=== PATIENT | female | born 1985 | race Caucasian/White ===

== ENCOUNTER 2020-03-29 16:59 | Outpatient (CLI) ==
[2020-03-29 19:11] VITALS: BP 127/77; PULSE 98; RESP 16; TEMP 97.5
--- NOTE | 2020-03-29 19:15 | US ---
EXAMINATION TYPE: US OB >= 14 wk fetus DATE OF EXAM: 03/29/2020 COMPARISON: None CLINICAL HISTORY: Post DatesPost Dates. JONAH and EFW. . TECHNIQUE: Transabdominal (TA) GESTATIONAL AGE / DATING Physician Established: (40 weeks/3 days) EDC: 03/26/2020 Dates by LMP: Dates by First Scan: This is first scan Dates by Current Scan: (37 weeks/1 day) EDC: 04/18/2020 SURVEY IUP: Single PLACENTA: Posterior. Appears to be heterogeneous. PREVIA: No Previa seen JONAH: 15.24 cm Normal CERVICAL LENGTH (transabdominal: norm > 3.0cm): 3.47 cm BIOMETRY PRESENTATION: Vertex LIE: Longitudinal BPD: 9.37 cm 38 weeks / 1 day HC: 33.60 cm 38 weeks / 3 days AC: 33.59 cm 37 weeks / 3 days FL: 7.11 cm 36 weeks / 3 days ESTIMATED WEIGHT IN GRAMS: 3206 grams ESTIMATED WEIGHT IN LBS/OZ: 7 lbs. 1 oz. WEIGHT PERCENTAGE BASED ON ESTABLISHED DATES: 14.9% HC/AC: 1.00 Normal FL/AC: 21.16 Normal HEART RATE: 135 bpm RHYTHM: Normal *Slightly limited abdominal measurements. IMPRESSION: 1. Live intrauterine , with heart rate 135 bpm. 2. Estimated weight 7 lbs. 1 oz. 3. JONAH 15.24, normal.
--- NOTE | 2020-04-10 08:39 | P.MSEPDOC ---
Presenting Problems - Arrival Data Date of Arrival on Unit: 03/29/20 Time of Arrival on Unit: 16:59 Mode of Transport: Portable - Complaint OB-Reason for Admission/Chief Complaint: Rule Out SROM Comment: Clear fluid @ 1530, small gush, no continued leaking Medical History - Information : 1 Para: 0 Term: 0 : 0 Abortions: Spontaneous or Elective: 0 Number of Living Children: 0 - Gestational Age Gestational Age by LIAM (wks/days): 40 Weeks and 3 Days Review of Systems - Review of Systems Constitutional: No problems Breast: No problems ENT: No problems Cardiovascular: No problems Respiratory: No problems Gastrointestinal: No problems Genitourinary: No problems Musculoskeletal: No problems Neurological: No problems Skin: No problems Vital Signs - Temperature Temperature: 97.5 F Temperature Source: Temporal Artery Scan - Pulse Right Sitting Brachial Pulse Rate: 98 Pulse Assessment Method: Automatic Cuff - Respirations Respiratory Rate: 16 Oxygen Delivery Method: Room Air O2 Sat by Pulse Oximetry: 97 - Blood Pressure Right Arm Sitting Blood Pressure: 127/77 Blood Pressure Mean: 93 Blood Pressure Source: Automatic Cuff Medical Screen Scoring (Pre) - Cervical Exam Dilation: 1-3 cm = 1 Membranes: Intact - Uterine Contractions Frequency: N/A Duration: N/A Intensity: N/A - Maternal Vital Signs Maternal Temperature: N/A Maternal Blood Pressure: N/A Maternal Respirations: N/A - Maternal Trauma Maternal Trauma: N/A - Assessment - Baby A Baseline FHR: 130 Heart Rate - NICHD Category: Category I (Normal) = 0 NST: Reactive Position: N/A Station: N/A - Total Score - Baby A Total Score - Baby A: 1 - Total Score - Baby B Total Score - Baby B: 1 - Total Score - Baby C Total Score - Baby C: 1 - Level of Risk - Baby A Level of Risk - Baby A: Low (0-5) - Level of Risk - Baby B Level of Risk - Baby B: Low (0-5) - Level of Risk - Baby C Level of Risk - Baby C: Low (0-5) Physician Notification (Pre) - Physician Notified Physician Notified Date: 03/29/20 Physician Notified Time: 17:40 New Order Received: Yes - Notification Comment Comment: Imelda godfrey\Dr. Henson, advsd , 40 , possible SROM, negative amnisure, /-2, no contractions, reactive NST. Appt tomorrow for NST, Friday for appt c\RN. Appt with Dr. Anderson 04/06/20. Orders rec'd for US for JONAH and EFW r/t post-dates. Medical Screen Scoring (Post) - Uterine Contractions Frequency: N/A Duration: N/A Intensity: N/A - Maternal Vital Signs Maternal Temperature: N/A Maternal Blood Pressure: N/A Signs of Preeclampsia: N/A Maternal Respirations: N/A - Maternal Trauma Maternal Trauma: N/A - Assessment - Baby A Heart Rate: 130 Heart Rate - NICHD Category: Category I (Normal) = 0 NST: Reactive Position: N/A Station: N/A - Total Score Total Score - Baby A: 0 Total Score - Baby B: 0 Total Score - Baby C: 0 - Post Treatment Level of Risk Post Treatment Level of Risk - Baby A: Low (0-5) Post Treatment Level of Risk - Baby B: Low (0-5) Post Treatment Level of Risk - Baby C: Low (0-5) Physician Notification (Post) - Physician Notified Physician Notified Date: 03/29/20 - Notification Comment Comment: JONAH 15.24cm; EFW 7lb 1oz/3206g. Pt to follow up for scheduled NST tomorrow. Disposition - Disposition OB Disposition: Discharge to home, Written follow up instructions reviewed Discharge Date: 03/29/20 Discharge Time: 18:50 I agree with the RN Medical Screening Exam: Yes Risk & Benefit of care provided described in d/c instruction: Yes Diagnosis: RELATED CONDITIONS, UNSPECIFIED, THIRD TRIMESTER
== END 2020-03-29 18:50 | disposition home or self-care (01) ==
LOC: FBPOP 16:59
PROVIDERS: ATTEND Obstetrics & Gynecology
DX: O26.90 Pregnancy related conditions, unspecified, unspecified trimester (principal); Z3A.40 40 weeks gestation of pregnancy
CPT/HCPCS: 76805

== ENCOUNTER 2020-03-30 19:42 | Inpatient (IN) | payer BC ==
[2020-03-30] MEDS ORDERED: TERBUTALINE 1 MG/ML VIAL SQ PRN (20:26)
[2020-03-30] MEDS ORDERED: OXYTOCIN 10 UNIT/ML 1 ML VIAL IM PRN (20:26)
[2020-03-30] MEDS ORDERED: METHYLERGONOVINE 0.2 MG/ML 1 ML AMP IM PRN (20:26)
[2020-03-30] MEDS ORDERED: LIDOCAINE 0.5% (PF) 5 MG/ML (50 ML SDV) SQ PRN (20:26)
[2020-03-30] MEDS ORDERED: CARBOPROST TROMETHAMINE 250 MCG/ML 1 ML AMP IM PRN (20:26)
[2020-03-30] MEDS ORDERED: AMPICILLIN 2,000 MG in SODIUM CHLORIDE 0.9% 100 ML IVPB STA (20:26)
[2020-03-30] MEDS ORDERED: OXYTOCIN 30 UNITS/500 ML NS 30 UNIT in SALINE 1 500ML.BAG IV SCH (20:30)
[2020-03-30] MEDS: LACTATED RINGERS 1,000 ML IV SCH (20:50)
[2020-03-30 21:04] LABS: Basophils % (A) 0 %; Eosinophils # (A) 0.1 k/uL (0-0.7); Eosinophils % (A) 1 %; HCT 34.5 % (34.0-46.0); HGB 11.3 gm/dL (11.4-16.0); Lymphocytes # (A) 2.6 k/uL (1.0-4.8); Lymphocytes % (A) 26 %; MCH 30.5 pg (25.0-35.0); MCHC 32.8 g/dL (31.0-37.0); MCV 92.9 fL (80.0-100.0); Mean Platelet Volume 7.2; Monocytes # (A) 0.4 k/uL (0-1.0); Monocytes % (A) 4 %; Neutrophils # (A) 6.9 k/uL (1.3-7.7); Neutrophils % (A) 68 %; Platelet Count 351 k/uL (150-450); Poikilocytosis Slight; RBC 3.72 m/uL (3.80-5.40); RDW 12.9 % (11.5-15.5); WBC 10.1 k/uL (3.8-10.6)
[2020-03-31] MEDS: AMPICILLIN 1,000 MG in SODIUM CHLORIDE 0.9% 50 ML IVPB SCH ×2 (00:22→04:28)
[2020-03-31] MEDS ORDERED: ROPIVACAINE 5MG/ML 20ML VIAL ONE (03:00)
[2020-03-31] MEDS ORDERED: SODIUM CHLORIDE 0.9% 100 ML BAG ONE (03:00)
[2020-03-31] MEDS ORDERED: fentaNYL (PF) 50 MCG/ML 5 ML AMP ONE (03:00)
[2020-03-31] MEDS: LACTATED RINGERS 1,000 ML IV SCH (03:30)
--- NOTE | 2020-03-31 06:12 | P.HPOB ---
History of Present Illness H&P Date: 03/31/20 Chief Complaint: Contractions This is a 34-year-old female 1 para 0 with an estimated date of confinement of 03/26/2020, estimated gestational age of 40-4/7 weeks, who presented to labor and delivery yesterday evening after contractions started at approximately 4 PM. She had been seen in triage the day before. She stated she felt a large gush of fluid at approximately 3 PM on 03/29/2020. She was checked in triage and did have 2 separate amnisure tests, both of which were negative. She did go to the office yesterday for a scheduled fluid level and NST. Both were normal. She has continued to feel leaking since the seventh. care has been with Dr. Anderson and has been uncomplicated. labs: GC/chlamydia-negative Random glucose-62 Hemoglobin-10.5 Blood type-A+ Antibody screen-negative Hepatitis B surface antigen-negative on reactive Rubella-immune Toxoplasma-negative HIV-nonreactive RPR-nonreactive Group B streptococcus-negative Obstetrical history: . Social history: She is single. She works full-time as a social human services assistants. Review of Systems Constitutional: Denies chills, Denies fever Eyes: denies blurred vision, denies pain Ears, nose, mouth and throat: Denies headache, Denies sore throat Cardiovascular: Denies chest pain, Denies shortness of breath Respiratory: Denies cough Gastrointestinal: Reports abdominal pain (Contractions) Genitourinary: Reports pelvic pain, Reports Musculoskeletal: Reports low back pain Integumentary: Denies pruritus, Denies rash Neurological: Denies numbness, Denies weakness Psychiatric: Denies anxiety, Denies depression Past Medical History Past Medical History: No Reported History History of Any Multi-Drug Resistant Organisms: None Reported Past Surgical History: No Surgical Hx Reported Past Anesthesia/Blood Transfusion Reactions: No Reported Reaction Past Psychological History: No Psychological Hx Reported Smoking Status: Never smoker Past Alcohol Use History: None Reported Past Drug Use History: None Reported - Past Family History Mother Family Medical History: No Reported History Medications and Allergies Home Medications Medication Instructions Recorded Confirmed Type Pnv No.95/Ferrous Fum/Folic AC 1 PO DAILY 03/30/20 History [ Multivitamin Tablet] Allergies Allergy/AdvReac Type Severity Reaction Status Date / Time No Known Allergies Allergy Verified 03/29/20 17:19 Exam Osteopathic Statement: *. No significant issues noted on an osteopathic structural exam other than those noted in the History and Physical/Consult. Vital Signs Temp Pulse Resp BP Pulse Ox 03/30/20 20:53 97.3 F L 76 16 132/82 99 03/30/20 20:01 96.9 F L 96 16 136/90 99 Intake and Output 03/30/20 03/30/20 03/31/20 14:59 22:59 06:59 Other: # Voids 1 Weight 77.564 kg HEENT: Within normal limits Heart: Regular rate and rhythm Lungs: Clear to auscultation bilaterally Abdomen: Cervix: On admission is 1-1/2 cm/50%/-2 station. Amnisure is positive. Some clear fluid is noted. heart tones: Reactive, category 1 Contractions: Every 4-5 minutes Extremities: Negative Homans. Results Result Diagrams: 03/30/20 20:26 Abnormal Lab Results - Last 24 Hours (Table) 03/30/20 Range/Units 20:26 RBC 3.72 L (3.80-5.40) m/uL Hgb 11.3 L (11.4-16.0) gm/dL Assessment and Plan (1) 40 weeks gestation of Current Visit: Yes Status: Acute Code(s): Z3A.40 - 40 WEEKS GESTATION OF SNOMED Code(s): 57422584 (2) Prolonged rupture of membranes Current Visit: Yes Status: Acute Code(s): O42.90 - LATIA ROM, 7TH0 BETW RUPT & ONST LABR, UNSP WEEKS OF GEST SNOMED Code(s): 24798724 Plan: Antibiotic prophylaxis for prolonged rupture of membranes. Admission. Oxytocin augmentation of labor. Epidural anesthesia when desired.
[2020-03-31] MEDS ORDERED: IBUPROFEN 600 MG TAB PO PRN (07:52)
[2020-03-31] MEDS ORDERED: BENZOCAINE/MENTHOL SPRAY 1 GM/SPRAY AEROSOL TOPICAL PRN (07:52)
[2020-03-31] MEDS ORDERED: LANOLIN CREAM 5 GM TUBE TOPICAL PRN (07:52)
[2020-03-31] MEDS ORDERED: diphenhydrAMINE 25 MG CAP PO PRN (07:52)
[2020-03-31] MEDS ORDERED: HYDROCORTISONE 2.5% RECTAL CREAM 30 GM TUBE RECTAL PRN (07:52)
[2020-03-31] MEDS ORDERED: ZOLPIDEM 5 MG TAB PO PRN (07:52)
[2020-03-31] MEDS ORDERED: diphenhydrAMINE 50 MG/ML 1 ML VIAL IVP PRN ×2 (07:52)
[2020-03-31] MEDS ORDERED: SIMETHICONE 80 MG CHEWABLE PO PRN (07:52)
[2020-03-31] MEDS ORDERED: diphenhydrAMINE 50 MG CAP PO PRN (07:52)
[2020-03-31] MEDS ORDERED: OXYTOCIN 20 UNITS/1000 ML NS 1,000 ML IV SCH (07:52)
--- NOTE | 2020-03-31 08:21 | P.PROBDLV ---
Vaginal Delivery Note - . Vaginal Delivery Note: The patient progressed to complete dilation after oxytocin augmentation of labor and antibiotic prophylaxis secondary to prolonged rupture of membranes. She did receive epidural anesthesia. Once reaching complete, she began pushing. Infant's head came to a crown. With one further push, the 's head delivered across the perineum followed by the anterior shoulder and the remainder of the body. Infant was placed on mother's abdomen and nose and mouth were bulb suctioned. Cord was clamped and cut and was taken to warmer for evaluation. A viable male is noted with scores of 9 at 1 minute and 9 at 5 minutes and infant weight was 7 lbs. 8 oz. Placenta delivered shortly thereafter, intact, with a three-vessel cord. Placenta will be sent to pathology due to prolonged rupture of membranes. Uterus contracted well after oxytocin was given and uterine massage was carried out. Inspection of the perineum revealed a small second-degree perineal laceration. This area was anesthetized with 1% lidocaine and then sutured with 3-0 Vicryl suture in the usual multilayer fashion. Estimated blood loss is approximately 150 mL's. Both mother and are in stable condition.
[2020-03-31] MEDS: SENNOSIDES-DOCUSATE SODIUM 1 EACH TAB PO SCH (09:13)
[2020-04-01] MEDS: SENNOSIDES-DOCUSATE SODIUM 1 EACH TAB PO SCH ×3 (06:26→21:03)
--- NOTE | 2020-04-01 07:18 | P.PNOBGVD ---
Subjective - Subjective Patient reports: Reports appetite normal, Reports voiding normally, Reports pain well controlled, Reports ambulating normally : doing well Objective - Latest Vital Signs Latest vital signs: Vital Signs Temp Pulse Pulse Resp BP Pulse Ox 04/01/20 00:00 97.6 F 79 16 115/76 99 03/31/20 20:00 97.6 F 67 16 127/63 99 03/31/20 16:00 98.4 F 82 16 110/76 03/31/20 12:00 98.1 F 90 16 122/75 99 03/31/20 09:40 86 16 121/68 03/31/20 09:10 81 16 100/55 03/31/20 08:40 80 16 100/59 03/31/20 08:25 83 16 124/79 03/31/20 08:10 91 16 107/61 03/31/20 07:55 96 16 113/64 03/31/20 07:40 98.3 F 92 16 125/69 Intake and Output 03/31/20 04/01/20 04/01/20 22:59 06:59 14:59 Other: # Voids 1 1 - Exam Lungs: bilateral: normal Chest: Normal S1, Normal S2 Extremities: Present: normal Abdomen: Present: normal appearance, soft Uterus: Present: normal, firm Assessment and Plan Assessment: Post day #1. Patient is resting without complaints. Vital signs are stable and she is afebrile. Uterus is firm nontender she's having normal lochia. My impression this is a normal course. Due to the prolonged rupture, baby will stay another day and therefore we plan on discharging mother tomorrow as well. (1) Normal labor and delivery Current Visit: Yes Status: Acute Code(s): O80 - ENCOUNTER FOR FULL-TERM UNCOMPLICATED DELIVERY SNOMED Code(s): 73939343
[2020-04-01 08:02] LABS: Basophils % (A) 0 %; Eosinophils # (A) 0.1 k/uL (0-0.7); Eosinophils % (A) 1 %; HCT 29.9 % (34.0-46.0); Lymphocytes # (A) 2.1 k/uL (1.0-4.8); Lymphocytes % (A) 20 %; MCH 29.2 pg (25.0-35.0); MCHC 31.9 g/dL (31.0-37.0); MCV 91.5 fL (80.0-100.0); Mean Platelet Volume 7.2; Monocytes # (A) 0.4 k/uL (0-1.0); Monocytes % (A) 4 %; Neutrophils # (A) 7.6 k/uL (1.3-7.7); Neutrophils % (A) 75 %; Platelet Count 319 k/uL (150-450); RBC 3.27 m/uL (3.80-5.40); RDW 13.4 % (11.5-15.5); WBC 10.2 k/uL (3.8-10.6)
[2020-04-01 08:05] LABS: HGB 9.5 gm/dL (11.4-16.0)
[2020-04-01] MEDS: ACETAMINOPHEN TAB 325 MG TAB PO PRN ×3 (08:53→21:03)
[2020-04-01] MEDS: PRENATAL VIT-IRON-FOLIC ACID 1 EACH CAP PO SCH (14:15)
[2020-04-02] MEDS: ACETAMINOPHEN TAB 325 MG TAB PO PRN ×2 (00:47→09:05)
--- NOTE | 2020-04-02 07:23 | P.PNOBGVD ---
Subjective - Subjective Patient reports: Reports appetite normal, Reports voiding normally, Reports pain well controlled, Reports ambulating normally : doing well Objective - Latest Vital Signs Latest vital signs: Vital Signs Temp Pulse Resp BP Pulse Ox 04/02/20 00:00 97.4 F L 63 14 111/61 98 04/01/20 16:00 97.9 F 84 15 129/63 04/01/20 08:00 97.9 F 80 15 122/78 Intake and Output 04/01/20 04/02/20 04/02/20 22:59 06:59 14:59 Other: # Voids 2 2 - Exam Lungs: bilateral: normal Chest: Normal S1, Normal S2 Extremities: Present: normal Abdomen: Present: normal appearance, soft Uterus: Present: normal, firm - Labs Labs: Abnormal Lab Results - Last 24 Hours (Table) 04/01/20 Range/Units 06:15 RBC 3.27 L (3.80-5.40) m/uL Hgb 9.5 L D (11.4-16.0) gm/dL Hct 29.9 L (34.0-46.0) % Assessment and Plan Assessment: day #2. Patient is resting without new complaints. Vital signs are stable and she is afebrile. Uterus is firm nontender she's having normal lochia. My impression is a normal course. Plan is to continue routine care discharge home later today. (1) Normal labor and delivery Current Visit: Yes Status: Acute Code(s): O80 - ENCOUNTER FOR FULL-TERM UNCOMPLICATED DELIVERY SNOMED Code(s): 79075440
--- NOTE | 2020-04-02 07:28 | P.DS ---
Providers Date of admission: 03/30/20 20:13 Expected date of discharge: 04/02/20 Attending physician: Joanna Anderson Primary care physician: Stated None - Discharge Diagnosis(es) (1) Normal labor and delivery Current Visit: Yes Status: Acute Hospital Course: Please see dictated H&P for intimate details of this patient's admission. Brief summary this pleasant 34-year-old 1 para 0 female 40-5/7 weeks' gestation who is admitted to labor and delivery with suspected prolonged rupture membranes. Patient goes on to have a vaginal delivery viable male . Please see dictated delivery note. day #2 patient's felt be stable for discharge home follow up with Dr. Anderson 6 weeks. Procedures: Normal spontaneous vaginal delivery Patient Condition at Discharge: Good Plan - Discharge Summary New Discharge Prescriptions: No Action Pnv No.95/Ferrous Fum/Folic AC [ Multivitamin Tablet] 1 PO DAILY Discharge Medication List Pnv No.95/Ferrous Fum/Folic AC [ Multivitamin Tablet] 1 PO DAILY 03/30/20 [History] Follow up Appointment(s)/Referral(s): Joanna Anderson DO [Doctor of Osteopathic Medicine] - 05/12/20 11:15 am Patient Instructions/Handouts: Vaginal Delivery (DC) Activity/Diet/Wound Care/Special Instructions: No intercourse or anything per vagina for 6 weeks. Please call if any fever, chills, excessive vaginal bleeding, and/or abdominal pain. Discharge Disposition: HOME SELF-CARE
[2020-04-02 07:54] VITALS: BP 121/72; PULSE 74; RESP 15; TEMP 98
[2020-04-02] MEDS: PRENATAL VIT-IRON-FOLIC ACID 1 EACH CAP PO SCH (09:36)
[2020-04-02] MEDS: SENNOSIDES-DOCUSATE SODIUM 1 EACH TAB PO SCH (09:36)
== END 2020-04-02 11:47 | disposition home or self-care (01) | DRG 807 ==
LOC: FBPOP 19:42 → 4FBP 20:13
PROVIDERS: ADMIT Obstetrics & Gynecology; ATTEND Obstetrics & Gynecology
PROC: 0KQM0ZZ Repair Perineum Muscle, Open Approach (ICD-10-PCS; principal; 2020-03-31)
PROC: 3E0R3BZ Introduction of Anesthetic Agent into Spinal Canal, Percutaneous Approach (ICD-10-PCS; principal; 2020-03-31)
PROC: 00HU33Z Insertion of Infusion Device into Spinal Canal, Percutaneous Approach (ICD-10-PCS; principal; 2020-03-31)
PROC: 10E0XZZ Delivery of Products of Conception, External Approach (ICD-10-PCS; principal; 2020-03-31)
DX: O42.92 Full-term premature rupture of membranes, unspecified as to length of time between rupture and onset of labor (principal); O70.1 Second degree perineal laceration during delivery; Z37.0 Single live birth; Z3A.40 40 weeks gestation of pregnancy
CPT/HCPCS: 59025; 84112; 85025; 86850; 86900; 86901; 99213

== ENCOUNTER → 2023-05-14 | Outpatient (CLI) | payer MEDICAID | END | disposition home or self-care (01) | LOC: LABWHC1 09:44 | PROVIDERS: ATTEND Obstetrics & Gynecology | DX: Z00.00 Encounter for general adult medical examination without abnormal findings (principal); O20.0 Threatened abortion; Z3A.00 Weeks of gestation of pregnancy not specified | CPT/HCPCS: 36415; 84702 ==

== ENCOUNTER → 2023-05-16 | Outpatient (CLI) | payer MEDICAID | END | disposition home or self-care (01) | LOC: LABWHC1 07:18 | PROVIDERS: ATTEND Obstetrics & Gynecology | DX: O20.0 Threatened abortion (principal); Z3A.00 Weeks of gestation of pregnancy not specified | CPT/HCPCS: 36415; 84702 ==

== ENCOUNTER → 2023-05-26 | Outpatient (CLI) | payer MEDICAID | END | disposition home or self-care (01) | LOC: LABWHC1 12:40 | PROVIDERS: ATTEND Obstetrics & Gynecology | DX: O03.9 Complete or unspecified spontaneous abortion without complication (principal); Z3A.00 Weeks of gestation of pregnancy not specified | CPT/HCPCS: 36415; 84702 ==

== ENCOUNTER → 2023-06-13 | Outpatient (CLI) | payer MEDICAID | END | disposition home or self-care (01) | LOC: LABWHC1 09:25 | PROVIDERS: ATTEND Obstetrics & Gynecology | DX: O02.0 Blighted ovum and nonhydatidiform mole (principal); Z3A.00 Weeks of gestation of pregnancy not specified | CPT/HCPCS: 36415; 84702 ==

== ENCOUNTER → 2024-06-22 | Outpatient (CLI) | payer MEDICAID | END | disposition home or self-care (01) | LOC: LABWHC1 09:15 | PROVIDERS: ATTEND Obstetrics & Gynecology | DX: Z36.9 Encounter for antenatal screening, unspecified (principal) | CPT/HCPCS: 36415; 82950 ==

== ENCOUNTER → 2024-07-12 | Outpatient (CLI) | payer MEDICAID ==
--- NOTE | 2024-07-12 10:33 | USB ---
Reason for Exam: Clinical finding. Risk Values: Huma 5 year model risk: 0.3%. NCI Lifetime model risk: 6.8%. Technique: Method: Targeted. Findings: The upper section of the breast of the right breast, the axilla of the right breast and the retroareolar of the right breast were scanned. Targeted ultrasound right breast 11:00 to 1:00 including scanning of the subareolar region and axilla. Very dense tissue is present. Some duct ectasia. Focal duct ectasia versus cyst at the 12:00 position 1 cm from the nipple measuring 1.3 x 0.6 x 0.7 cm. Otherwise, no solid or cystic lesion or axillary lymphadenopathy.. Overall Assessment: Benign, BI-RAD 2 Management: Screening Mammogram of both breasts at age 40. Unless there is an indication to start sooner. Otherwise, clinical management of patient's left breast pain and palpable area. If there is any enlarging or suspicious developing palpable abnormality, the patient can be rescanned. A clinical breast exam by your physician is recommended on an annual basis and results should be correlated with mammographic findings. This exam should not preclude additional follow-up of suspicious palpable abnormalities. Results were given to the patient verbally at the time of exam. [facility], , 07/12/2024 10:31 AM. Electronically signed and approved by: Chet Kunz M.D. Radiologist
== END | disposition home or self-care (01) ==
LOC: RADUSWWP 10:04
PROVIDERS: ATTEND Obstetrics & Gynecology
DX: N64.4 Mastodynia (principal)

== ENCOUNTER 2024-09-18 17:12 | Inpatient (IN) | payer MEDICAID ==
[2024-09-18] MEDS ORDERED: TRANEXAMIC 1,000 MG/100ML-NACL 1,000 MG in EMPTY BAG 1 BAG IV PRN (20:21)
[2024-09-18] MEDS ORDERED: OXYTOCIN 10 UNIT/ML 1 ML VIAL IM PRN (20:21)
[2024-09-18] MEDS ORDERED: miSOPROStoL 200 MCG TAB PO PRN (20:21)
[2024-09-18] MEDS ORDERED: METHYLERGONOVINE 0.2 MG/ML 1 ML AMP IM PRN (20:21)
[2024-09-18] MEDS ORDERED: CARBOPROST TROMETHAMINE 250 MCG/ML 1 ML AMP IM PRN (20:21)
[2024-09-18] MEDS ORDERED: TERBUTALINE 1 MG/ML VIAL SQ PRN (20:21)
[2024-09-18] MEDS ORDERED: miSOPROStoL 200 MCG TAB RECTAL PRN (20:21)
[2024-09-18] MEDS ORDERED: BUTORPHANOL 1 MG/ML 1 ML VIAL IV PRN (20:30)
[2024-09-18] MEDS ORDERED: OXYTOCIN 30 UNITS/500 ML NS 30 UNIT in SALINE 1 500ML.BAG IV SCH (20:30)
--- NOTE | 2024-09-18 20:35 | P.HPOB ---
History of Present Illness H&P Date: 09/18/24 Chief Complaint: 39-6/7 weeks, early active labor The patient is a 38-year-old 3 para 1-0-1-1 admitted at 39-6/7 weeks as established by last menstrual period and confirmed by 10-week ultrasound. She is admitted in early active labor having made cervical change in triage. On labor and delivery, all signs are reassuring with a category 1 heart rate tracing. Her has been uncomplicated though she falls into the category of advanced maternal age. She declined trisomy testing. Group B strep status is negative. Obstetrical history: 3 para 1-0-1-1 with 1 term vaginal delivery without complications. Current statistics are listed in history of present illness. EDC of 09/19/2024 was established by last menstrual period and confirmed by an 10-week ultrasound. Laboratory workup demonstrates a blood type of A+ with a negative antibody screen. Rubella status is immune. The remainder of the laboratory workup was within normal limits. 1 hour Glucola is normal and group B strep status is negative. Gynecologic history: Unremarkable with no history of any infections to include STDs. Review of Systems Review of systems is confined to history of present illness. Past Medical History Past Medical History: No Reported History History of Any Multi-Drug Resistant Organisms: None Reported Past Surgical History: No Surgical Hx Reported Past Anesthesia/Blood Transfusion Reactions: No Reported Reaction Past Psychological History: No Psychological Hx Reported Smoking Status: Never smoker Past Alcohol Use History: None Reported Past Drug Use History: None Reported - Past Family History Mother Family Medical History: No Reported History Medications and Allergies Home Medications Medication Instructions Recorded Confirmed Type No Known Home Medications 09/18/24 09/18/24 History Allergies Allergy/AdvReac Type Severity Reaction Status Date / Time No Known Allergies Allergy Verified 09/18/24 17:35 Exam Vital Signs Pulse Resp BP 09/18/24 19:34 75 14 134/84 Intake and Output 09/18/24 09/18/24 09/18/24 06:59 14:59 22:59 Other: Weight 80.739 kg In general, this is a well-developed, well-nourished white female in no acute distress. Her heart has a regular rhythm and rate without murmur. Her lungs are clear to auscultation bilateral in all tubbs. Her abdomen is gravid, nondistended, has normal active bowel sounds, is soft, nontender, and without any palpable masses aside from uterine fundus. Her extremities are without any cyanosis, clubbing, or significant edema and are nontender to palpation bilaterally. Digital cervical examination performed by the nursing staff demonstrates her cervix to be 4 cm dilated, 70% effaced, the vertex and presentation at -2 station. Membranes are intact. Assessment and Plan (1) Active labor at term Current Visit: Yes Status: Acute Code(s): LKJ6535 - SNOMED Code(s): 28941485 Plan: The patient is admitted for active management of labor. She will have close maternal and surveillance and expectant management will be practiced. She is a good candidate for either IV or epidural analgesia, whichever she may choose.
[2024-09-18 20:37] LABS: Basophils % (A) 0 %; Eosinophils # (A) 0.1 k/uL (0-0.7); Eosinophils % (A) 1 %; HGB 9.7 gm/dL (11.4-16.0); Hypochromasia Slight; Lymphocytes # (A) 2.3 k/uL (1.0-4.8); Lymphocytes % (A) 25 %; MCH 27.9 pg (25.0-35.0); MCHC 33.4 g/dL (31.0-37.0); MCV 83.3 fL (80.0-100.0); Mean Platelet Volume 7.1; Monocytes # (A) 0.4 k/uL (0-1.0); Monocytes % (A) 4 %; Neutrophils # (A) 6.4 k/uL (1.3-7.7); Neutrophils % (A) 68 %; Platelet Count 354 k/uL (150-450); Poikilocytosis Slight; RBC 3.48 m/uL (3.80-5.40); WBC 9.4 k/uL (3.8-10.6)
[2024-09-18] MEDS: LACTATED RINGERS 1,000 ML IV SCH (21:15)
[2024-09-18] MEDS ORDERED: ROPIVACAINE 5 MG/ML 30 ML VIAL ONE (23:35)
[2024-09-18] MEDS ORDERED: SODIUM CHLORIDE 0.9% 250 ML BAG ONE (23:35)
[2024-09-18] MEDS ORDERED: fentaNYL (PF) 50 MCG/ML 5 ML AMP ONE (23:35)
[2024-09-19] MEDS: OXYTOCIN 30 UNITS/500 ML NS 30 UNIT in SALINE 1 500ML.BAG IV SCH (03:39)
[2024-09-19] MEDS ORDERED: HYDROCORTISONE 2.5% RECTAL CREAM 30 GM TUBE RECTAL PRN (04:20)
[2024-09-19] MEDS ORDERED: diphenhydrAMINE 50 MG/ML 1 ML VIAL IVP PRN ×2 (04:20)
[2024-09-19] MEDS ORDERED: diphenhydrAMINE 50 MG CAP PO PRN (04:20)
[2024-09-19] MEDS ORDERED: LANOLIN CREAM 1 GM TUBE TOPICAL PRN (04:20)
[2024-09-19] MEDS ORDERED: IBUPROFEN 800 MG TAB PO PRN (04:20)
[2024-09-19] MEDS ORDERED: ZOLPIDEM 5 MG TAB PO PRN (04:20)
[2024-09-19] MEDS ORDERED: SIMETHICONE 80 MG CHEWABLE PO PRN (04:20)
[2024-09-19] MEDS ORDERED: diphenhydrAMINE 25 MG CAP PO PRN (04:20)
--- NOTE | 2024-09-19 04:24 | P.PROBDLV ---
Vaginal Delivery Note - . Vaginal Delivery Note: Patient is a 38-year-old 3 para 1-1-0-1 admitted at 39-6/7 weeks as established by good dating parameters. She is admitted in early active labor with all signs reassuring, category 1 heart rate tracing. Her has been entirely uncomplicated. She does fall into the category of advanced maternal age and declined trisomy testing. On labor and delivery, she had artificial rupture of membranes carried out demonstrating clear fluid. She had an epidural catheter placed for analgesia. She then progressed steadily through the active phase of labor to complete and pushed to a normal spontaneous vaginal delivery of a viable 8 pound 2 ounce baby boy with Apgars of 9 at 1 minute and 9 at 5 minutes delivered in the direct occiput anterior position. The placenta was delivered spontaneously, intact, and grossly normal with a grossly normal, centrally inserted three-vessel cord. There was a very small second-degree midline perineal laceration over the site of a previous laceration which was repaired with a single [id number] stitch of 3-0 chromic catgut without difficulty. Estimated blood loss for the case was approximate 100 mL. There were no complications. All sponge, instrument, and needle counts were correct. Both mother and infant are resting comfortably in recovery.
[2024-09-19] MEDS: BENZOCAINE/MENTHOL SPRAY 1 GM/SPRAY AEROSOL TOPICAL PRN (04:42)
[2024-09-19] MEDS: LIDOCAINE 0.5% (PF) 5 MG/ML (50 ML SDV) SQ PRN (04:42)
[2024-09-19] MEDS: ACETAMINOPHEN TAB 500 MG TAB PO PRN (08:31)
[2024-09-19] MEDS: SENNOSIDES-DOCUSATE SODIUM 1 EACH TAB PO SCH (08:33)
[2024-09-19] MEDS: ROPIVACAINE 225 MG, fentaNYL (PF). 450 MCG in SODIUM CHLORIDE 0.9% 171 ML EPIDURAL ONE (22:46)
[2024-09-20 01:18] VITALS: RESP 16
[2024-09-20 06:06] LABS: Basophils % (A) 0 %; Eosinophils # (A) 0.1 k/uL (0-0.7); Eosinophils % (A) 1 %; HCT 25.2 % (34.0-46.0); HGB 8.5 gm/dL (11.4-16.0); Hypochromasia Moderate; Lymphocytes # (A) 2.1 k/uL (1.0-4.8); Lymphocytes % (A) 23 %; MCH 28.5 pg (25.0-35.0); MCHC 33.7 g/dL (31.0-37.0); MCV 84.5 fL (80.0-100.0); Mean Platelet Volume 7.9; Monocytes # (A) 0.4 k/uL (0-1.0); Monocytes % (A) 5 %; Neutrophils # (A) 6.3 k/uL (1.3-7.7); Neutrophils % (A) 69 %; Platelet Count 268 k/uL (150-450); Poikilocytosis Slight; RBC 2.99 m/uL (3.80-5.40); RDW 14.1 % (11.5-15.5); WBC 9.1 k/uL (3.8-10.6)
[2024-09-20 09:39] VITALS: BP 133/78; PULSE 78; TEMP 97.6
--- NOTE | 2024-09-20 10:19 | P.DS ---
Providers Date of admission: 09/18/24 19:40 Expected date of discharge: 09/20/24 Attending physician: Reinaldo Guo Primary care physician: Stated None Hospital Course: Ms. Rubalcava is a 38 year old now PPD#1 s/p . The patient is doing well this morning and had no acute events overnight. She has no complaints this morning. She reports minimal lochia, passing flatus, voiding without difficulty, ambulating, and eating/drinking without nausea or vomiting. Infant doing well at bedside, s/p circumcision. She denies chest pain, shortness of breathing, fevers, or chills overnight. She denies pain or swelling in the legs. restrictions are reviewed with the patient including pelvic rest for 6 weeks The patient is encouraged to call the office if she experiences any heavy bleeding, foul-smelling discharge, breast complaints, or any if she has any other concerns. She will follow up in the office with in 6 weeks for exam. All questions are answered. Patient Condition at Discharge: Good Plan - Discharge Summary New Discharge Prescriptions: No Action No Known Home Medications Discharge Medication List No Known Home Medications 09/18/24 [History] Follow up Appointment(s)/Referral(s): Jessica Interiano MD [STAFF PHYSICIAN] - 6 Weeks Activity/Diet/Wound Care/Special Instructions: Instructions 1. Do not begin any exercise program for 3 weeks. 2. Do not resume sexual relations for 6 weeks or longer if uncomfortable. 3. You may take tub baths or showers at any time. 4. You may use tampons if desired after 6 weeks. 5. Keep any areas repaired with stitches clean and dry. 6. If you are not nursing, wear a good fitting, supportive bra during the day and limit fluid intake for at least 1 week to prevent breast engorgement. 7. Call the office, , within the next week to make appointment for your 6 week checkup if it has not already been made. 8. Report any of the following occurrences to the doctor promptly: a. Heavy, excessive bleeding b. Chills, fever c. Burning or frequency of urination d. Pain or redness and breasts if nursing e. Increasing pain or swelling of vulva (stitches). In addition to the above instructions, the following additional should be followed: 1. No heavy lifting or straining (exercising) until after 6 week checkup. 2. Keep abdominal incision clean and dry: You may wear a dressing if more comfortable. 3. Make office appointment for 2 weeks after delivery date. Discharge Disposition: HOME SELF-CARE
== END 2024-09-20 11:50 | disposition home or self-care (01) | DRG 807 ==
LOC: FBPOP 17:12 → 4FBP 19:40
PROVIDERS: ADMIT Obstetrics & Gynecology; ATTEND Obstetrics & Gynecology
PROC: 10E0XZZ Delivery of Products of Conception, External Approach (ICD-10-PCS; principal; 2024-09-19)
PROC: 10907ZC Drainage of Amniotic Fluid, Therapeutic from Products of Conception, Via Natural or Artificial Opening (ICD-10-PCS; 2024-09-19)
PROC: 0W8NXZZ Division of Female Perineum, External Approach (ICD-10-PCS; 2024-09-19)
DX: O70.1 Second degree perineal laceration during delivery (principal); Z37.0 Single live birth; Z3A.39 39 weeks gestation of pregnancy
CPT/HCPCS: 59025; 85025; 86850; 86900; 86901; 99213